=== PATIENT | male | born 1995 | race American Indian/Alaskan Native ===

== ENCOUNTER 2017-09-24 23:46 | Emergency (ER) | payer SELFPAY ==
[2017-09-25 02:12] LABS: Basophils # (Auto) 0.1 K/mm3 (0.0-0.1); Basophils % (Auto) 0.5 % (0.0-1.8); Eosinophils % (Auto) 0.3 % (0.0-4.3); Hematocrit 47.3 % (35.5-45.6); Hemoglobin 16.1 gm/dl (11.8-15.2); Lymphocytes # (Auto) 0.9 K/mm3 (1.2-5.4); Lymphocytes % (Auto) 8.6 % (13.4-35.0); Mean Corpuscular HGB Conc 34 % (32-34); Mean Corpuscular Hemoglobin 30 pg (28-32); Mean Corpuscular Volume 89 fl (84-94); Monocytes # (Auto) 0.3 K/mm3 (0.0-0.8); Monocytes % (Auto) 3.1 % (0.0-7.3); Platelet Count 242 K/mm3 (140-440)
[2017-09-25 02:25] LABS: BUN/Creatinine Ratio 11; Blood Urea Nitrogen 8 mg/dL (9-20); Calcium 9.3 mg/dL (8.4-10.2); Hemolysis Index 3
[2017-09-25 02:25] LABS: Benzodiazepines Screen,Urine PRESUMPTIVE NEGATIVE; Cocaine Screen,Urine PRESUMPTIVE NEGATIVE; Methadone Screen,Urine PRESUMPTIVE NEGATIVE; Opiate Screen,Urine PRESUMPTIVE NEGATIVE
[2017-09-25 02:59] LABS: Amphetamine Screen,Urine PRESUMPTIVE POSITIVE; Cannabinoid Screen,Urine PRESUMPTIVE POSITIVE
[2017-09-25] MEDS ORDERED: KEPPRA 1,000 MG/NS 0.75% 100ML 1,000 MG/100 ML BAG IV ONE (03:46)
--- NOTE | 2017-09-25 04:30 | Emergency Department Report ---
HPI - General Chief Complaint: Psych Time Seen by Provider: 09/25/17 03:38 - HPI HPI: Room 8 The patient is a 21-year-old male presenting with a chief complaint of anxiety. The patient states he came to the emergency department tonight because he felt as though he was having a panic attack. Patient states he felt like he was going to have a seizure as he has felt overwhelmed, had inability to focus or think (patient states this has been going on for years). The patient states he has not had his Keppra 3 weeks. Patient denies suicidal or homicidal ideation. Patient denies auditory or visual hallucinations. Location: Mental status, see above Duration: [See above] Quality: [See above] Severity: "Overwhelmed" Modifying factors: [see above] Context: [see above] Mode of transportation: [not driving] ED Past Medical Hx - Past Medical History Previous Medical History?: Yes Hx Seizures: Yes Hx Psychiatric Treatment: Yes (Anxiety, Depression) Additional medical history: seasonal allergies - Surgical History Past Surgical History?: No - Family History Family history: no significant - Social History Smoking Status: Never Smoker Substance Use Type: None (denies illicit drug use) - Medications Home Medications: Home Medications Medication Instructions Recorded Confirmed Last Taken Type levETIRAcetam [Keppra] 250 mg PO BID 09/14/14 09/14/14 09/07/14 History hydrOXYzine PAMOATE [Vistaril] 50 mg PO Q6HR PRN #20 capsule 09/25/17 Unknown Rx levETIRAcetam [Keppra TAB] 250 mg PO BID #90 tablet 09/25/17 Unknown Rx ED Review of Systems ROS: Stated complaint: ANXIETY Other details as noted in HPI Psychiatric: anxiety. denies: auditory hallucinations, visual hallucinations, homicidal thoughts, suicidal thoughts Physical Exam - Physical Exam Vital Signs: Vital Signs 09/25/17 09/25/17 09/25/17 01:19 03:28 03:29 Temperature 98.2 F 98 F Pulse Rate 106 H 97 H Respiratory 18 18 18 Rate Blood Pressure 135/75 Blood Pressure 127/80 [Left] O2 Sat by Pulse 100 97 Oximetry Physical Exam: GENERAL: The patient is well-developed well-nourished male lying on stretcher not appear to be in acute distress. [] HEENT: Normocephalic. Atraumatic. Extraocular motions are intact. Patient has moist mucous membranes. NECK: Supple. Trachea midline CHEST/LUNGS: Clear to auscultation. There is no respiratory distress noted. HEART/CARDIOVASCULAR: Regular. There is no tachycardia. There is no gallop rub or murmur. ABDOMEN: Abdomen is soft, nontender. Patient has normal bowel sounds. There is no abdominal distention. SKIN: There is no rash. There is no edema. There is no diaphoresis. NEURO: The patient is awake, alert, and oriented. The patient is cooperative. The patient has no focal neurologic deficits. The patient has normal speech. Cranial nerves II through XII grossly intact, no drift MUSCULOSKELETAL: There is no evidence of acute injury. ED Course Vital Signs 09/25/17 09/25/17 09/25/17 01:19 03:28 03:29 Temperature 98.2 F 98 F Pulse Rate 106 H 97 H Respiratory 18 18 18 Rate Blood Pressure 135/75 Blood Pressure 127/80 [Left] O2 Sat by Pulse 100 97 Oximetry ED Medical Decision Making - Lab Data Result diagrams: 09/25/17 01:38 09/25/17 01:38 Laboratory Tests 09/25/17 09/25/17 09/25/17 01:36 01:38 01:38 WBC RBC Hgb Hct MCV MCH MCHC RDW Plt Count Lymph % (Auto) Swain % (Auto) Eos % (Auto) Baso % (Auto) Lymph # Swain # Eos # Baso # Seg Neutrophils % Seg Neutrophils # Sodium Potassium Chloride Carbon Dioxide Anion Gap BUN Creatinine Estimated GFR BUN/Creatinine Ratio Glucose Calcium Salicylates < 0.3 L Urine Opiates Screen Presumptive negative Urine Methadone Screen Presumptive negative Acetaminophen < 5.0 L Ur Barbiturates Screen Presumptive negative Ur Phencyclidine Scrn Presumptive negative Ur Amphetamines Screen Presumptive positive U Benzodiazepines Scrn Presumptive negative Urine Cocaine Screen Presumptive negative U Marijuana (THC) Screen Presumptive positive Drugs of Abuse Note Disclamer Plasma/Serum Alcohol 09/25/17 09/25/17 09/25/17 01:38 01:38 01:38 WBC 10.8 RBC 5.30 H Hgb 16.1 H Hct 47.3 H MCV 89 MCH 30 MCHC 34 RDW 14.0 Plt Count 242 Lymph % (Auto) 8.6 L Swain % (Auto) 3.1 Eos % (Auto) 0.3 Baso % (Auto) 0.5 Lymph # 0.9 L Swain # 0.3 Eos # 0.0 Baso # 0.1 Seg Neutrophils % 87.5 H Seg Neutrophils # 9.4 H Sodium 140 Potassium 3.5 L Chloride 97.8 L Carbon Dioxide 24 Anion Gap 22 BUN 8 L Creatinine 0.7 L Estimated GFR > 60 BUN/Creatinine Ratio 11 Glucose 164 H Calcium 9.3 Salicylates Urine Opiates Screen Urine Methadone Screen Acetaminophen Ur Barbiturates Screen Ur Phencyclidine Scrn Ur Amphetamines Screen U Benzodiazepines Scrn Urine Cocaine Screen U Marijuana (THC) Screen Drugs of Abuse Note Plasma/Serum Alcohol < 0.01 - Differential Diagnosis anxiety, aura, epilepsy Critical care attestation.: If time is entered above; I have spent that time in minutes in the direct care of this critically ill patient, excluding procedure time. ED Disposition Clinical Impression: Anxiety, Aura Disposition: - TO HOME OR SELFCARE Is pt being admited?: No Does the pt Need Aspirin: No Condition: Stable Instructions: Anxiety (ED), Epilepsy (ED) Additional Instructions: Return to the emergency department immediately should you develop worsening symptoms, fever, inability to tolerate food or liquid or any other concerns. Prescriptions: hydrOXYzine PAMOATE [Vistaril] 50 mg PO Q6HR PRN #20 capsule PRN Reason: Anxiety levETIRAcetam [Keppra TAB] 250 mg PO BID #90 tablet [facility] - 3-[address] Rockwell, your neurologist [Other] - [facility] Time of Disposition: 04:32
[2017-09-25 05:06] VITALS: BP 132/70
== END 2017-09-25 05:07 | disposition home or self-care (01) ==
LOC: ED 23:46
DX: F41.9 Anxiety disorder, unspecified (principal); G43.109 Migraine with aura, not intractable, without status migrainosus; F32.9 Major depressive disorder, single episode, unspecified; Z79.899 Other long term (current) drug therapy
CPT/HCPCS: 36415; 80048; 80307; 85025; 96374; 99284; G0480; J1953; 80320

== ENCOUNTER 2018-08-14 18:25 | Emergency (ER) | payer OTHER ==
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
[2018-08-14 19:23] VITALS: BP 114/77
--- NOTE | 2018-08-14 20:32 | XRay Report ---
FINAL REPORT EXAM: XR KNEE 3V RT HISTORY: knee pain right TECHNIQUE: Right knee 3 views PRIORS: None. FINDINGS: No fracture is identified. No dislocation seen. No evidence of joint effusion. Patella demonstrates n ormal positioning. No acute bony abnormality identified. IMPRESSION: Negative knee series
--- NOTE | 2018-08-14 20:33 | XRay Report ---
FINAL REPORT EXAM: XR SHOULDER 2+V RT HISTORY: right shoulder pain TECHNIQUE: Three views right shoulder PRIORS: None. FINDINGS: No fractures are identified. No dislocation seen. The acromioclavicular joint is intact. Adjacent b claribel and soft tissue structures are unremarkable. IMPRESSION: Negative shoulder series
== END 2018-08-14 21:00 | disposition left against medical advice (07) ==
LOC: ED 18:25
DX: Z04.1 Encounter for examination and observation following transport accident (principal); Z53.21 Procedure and treatment not carried out due to patient leaving prior to being seen by health care provider